=== PATIENT | male | born 1985 ===

== ENCOUNTER 2017-09-08 15:29 | Emergency (ER) | payer OTHER ==
[2017-09-08 15:34] VITALS: BMI 28.3
[2017-09-08 15:36] VITALS: TEMP 98.5; O2SAT 98
[2017-09-08] MEDS ORDERED: Dexamethasone 4 mg/1 ml IM STA (16:31)
--- NOTE | 2017-09-08 17:47 | C.PDOC ---
History Of Present Illness 31-year-old male, presents to the emergency department with complaints of back pain. Patient states that for the past 2-3 weeks, he has been experiencing pain to the left buttocks and lower back, radiating don the left leg. patient denies any history of injury, however, he states he does a lot of heavy lifting at work. Denies numbness/weakness, nausea/vomiting, fever, chills, bladder/bowel incontinence, or any other associated symptoms. No other complaints at this time. Time Seen by Provider: 09/08/17 15:39 History Per: Patient History/Exam Limitations: no limitations Onset/Duration Of Symptoms: Days Current Symptoms Are (Timing): Still Present Past Medical History Reviewed: Historical Data, Nursing Documentation, Vital Signs Vital Signs: Last Vital Signs Temp 98.5 F 09/08/17 15:34 Pulse 66 09/08/17 17:59 Resp 18 09/08/17 17:59 BP 145/88 09/08/17 17:59 Pulse Ox 98 09/08/17 17:59 - Medical History PMH: Back Problems Surgical History: Appendectomy (4 years ago) - [facility] Procedures TETANUS TOXOID ADMINIST (06/27/06) Family History: States: No Known Family Hx - Social History Hx Tobacco Use: Yes Hx Alcohol Use: Yes Hx Substance Use: No - Immunization History Hx Tetanus Toxoid Vaccination: No Hx Influenza Vaccination: No Hx Pneumococcal Vaccination: No Review Of Systems Constitutional: Negative for: Fever, Chills Respiratory: Negative for: Shortness of Breath Gastrointestinal: Negative for: Vomiting Genitourinary: Negative for: Incontinence Musculoskeletal: Positive for: Back Pain Neurological: Negative for: Weakness, Numbness Physical Exam - Physical Exam Appears: Non-toxic, No Acute Distress Skin: Normal Color, Warm, Dry, No Rash Head: Atraumatic Eye(s): bilateral: Normal Inspection Nose: Normal Oral Mucosa: Moist Lips: Normal Appearing Neck: Normal ROM Chest: Symmetrical Cardiovascular: Rhythm Regular, No Murmur Respiratory: Normal Breath Sounds, No Accessory Muscle Use Gastrointestinal/Abdominal: Soft, No Tenderness Back: Paraspinal Tenderness (paralumbar, left) Extremity: Normal ROM, No Deformity, No Swelling Neurological/Psych: Oriented x3, Normal Speech Gait: Steady ED Course And Treatment O2 Sat by Pulse Oximetry: 98 (RA) Pulse Ox Interpretation: Normal Medical Decision Making Medical Decision Making: On re-exam, the patient reports improvement of symptoms. Lungs are CTA, heart is RRR, abdomen is soft, non-tender and tolerating PO well. Ambulatory in the ED with steady gait. Follow up with the medical doctor/clinic within 1-2 days. Return if worsened. Disposition - Disposition Referrals: Rudi Resendiz MD [Non-Staff] - Disposition: HOME/ ROUTINE Disposition Time: 17:47 Condition: GOOD Additional Instructions: Follow up with the medical doctor/clinic within 1-2 days. Return if worsened. Prescriptions: Cyclobenzaprine [Flexeril] 5 mg PO TID #21 tab Lidocaine 5% [Lidoderm] 1 each TP DAILY #10 patch Naproxen [Naprosyn] 500 mg PO BID #20 tab Instructions: Sciatica Forms: Work Excuse - Clinical Impression Clinical Impression: Sciatica - Scribe Statement The provider has reviewed the documentation as recorded by the Scribe (Romulo Bravo) All medical record entries made by the Scribe were at my direction and personally dictated by me. I have reviewed the chart and agree that the record accurately reflects my personal performance of the history, physical exam, medical decision making, and the department course for this patient. I have also personally directed, reviewed, and agree with the discharge instructions and disposition.
[2017-09-08 18:01] VITALS: BP 145/88; PULSE 66; RESP 18
== END 2017-09-08 18:00 | disposition home or self-care (01) ==
LOC: C.ER 15:29
DX: M54.30 Sciatica, unspecified side (principal); Z72.0 Tobacco use
CPT/HCPCS: 96372; 99285; J1100; J1885